=== PATIENT | male | born 1955 | race African-American/Black ===

== ENCOUNTER 2020-03-05 14:14 | Inpatient (IN) | payer OTHER ==
[~2020-03-05] VITALS: Ht 185.4 cm; Wt 96.6 kg
[2020-03-05] MEDS ORDERED: LEVETIRACETAM 500MG PREMIX 100 ML IV ONE (14:45)
[2020-03-05 15:22] LABS: CHLORIDE 108 mEq/L (98-107)
[2020-03-05 15:26] LABS: ETHANOL BLOOD < 10 mg/dL
[2020-03-05] MEDS ORDERED: LORAZEPAM 2MG/ML CPJ ONE ×2 (15:54→19:40)
[2020-03-05 15:56] LABS: BASOPHILS % 0.5 % (0.0-2.0); EOSINOPHILS % 0.4 % (0.0-5.0); HEMATOCRIT. 45.9 % (42.0-52.0); HEMOGLOBIN. 15.7 g/dL (14.0-18.0); LYMPHOCYTES % 12.2 % (20.0-50.0); MEAN CORPUSCULAR HEMOGLOBIN 31.6 pg (28.0-32.0); MEAN CORPUSCULAR VOLUME 92.4 fL (80.0-94.0); MEAN PLATELET VOLUME 9.7 fl (7.4-10.4); MONOCYTES % 8.1 % (2.0-8.0); NEUTROPHILS % 78.8 % (40.0-76.0); PLATELET 151 x1000/uL (130-400); RED BLOOD CELL COUNT 4.97 mill/uL (4.7-6.1); RED CELL DISTRIBUTION WIDTH 13.1 % (11.6-14.6)
[2020-03-05] MEDS ORDERED: LORAZEPAM 2MG/ML CPJ IV ONE (16:00)
[2020-03-05] MEDS ORDERED: DEXTROSE 50% WATER 50ML SYRINGE IV PRN (19:45)
[2020-03-05] MEDS ORDERED: ACETAMINOPHEN 325MG TABLET PO PRN (19:45)
[2020-03-05] MEDS ORDERED: ZOLPIDEM TARTRATE 5MG TABLET PO PRN (19:45)
[2020-03-05] MEDS ORDERED: DIPHENHYDRAMINE 50MG/ML VIAL IV PRN (19:45)
[2020-03-05] MEDS ORDERED: ONDANSETRON HCL 4MG/2ML INJ IV PRN (19:45)
[2020-03-05] MEDS ORDERED: LORAZEPAM 2MG/ML CPJ IV PRN (19:45)
[2020-03-05] MEDS ORDERED: MVI, ADULT NO.1 10 ML, FOLIC ACID 1 MG, THIAMINE HCL 100 MG in SODIUM CHLORIDE 0.9% 1,0... IV NR ×4 (20:00)
[2020-03-05] MEDS ORDERED: LEVETIRACETAM 500MG PREMIX 100 ML IV NR (20:15)
[2020-03-05] MEDS ORDERED: DIPHENHYDRAMINE 50MG/ML VIAL IV NR (20:45)
[2020-03-05] MEDS ORDERED: LEVETIRACETAM 500 MG in SODIUM CHLORIDE 0.9% 100 ML IV SCH (20:45)
[2020-03-05] MEDS ORDERED: HALOPERIDOL LACTATE 5MG/ML VIAL IM PRN (20:45)
[2020-03-05] MEDS ORDERED: HALOPERIDOL LACTATE 5MG/ML VIAL IM NR (20:45)
[2020-03-05] MEDS: DEXT 5%/0.45% NACL 1000ML 1,000 ML IV SCH (22:00)
[2020-03-05] MEDS: BLOOD SUGAR DIAGNOSTIC STRIP TEST SCH (22:18)
[2020-03-05] MEDS: INSULIN LISPRO 100 UNITS/ML SUBCUT SCH (22:19)
[2020-03-06] VITALS (7 sets, daily range): BP systolic 153–189; BP diastolic 71–102
[2020-03-06] MEDS: BLOOD SUGAR DIAGNOSTIC STRIP TEST SCH ×3 (05:35→17:54)
[2020-03-06] MEDS: DEXT 5%/0.45% NACL 1000ML 1,000 ML IV SCH ×2 (06:00→15:15)
[2020-03-06 06:04] LABS: HEMATOCRIT. 40.1 % (42.0-52.0); HEMOGLOBIN. 13.8 g/dL (14.0-18.0); MEAN CORPUSCULAR HEMOGLOBIN 31.9 pg (28.0-32.0); MEAN CORPUSCULAR VOLUME 92.4 fL (80.0-94.0); MEAN PLATELET VOLUME 10.8 fl (7.4-10.4); PLATELET 127 x1000/uL (130-400); RED BLOOD CELL COUNT 4.34 mill/uL (4.7-6.1); RED CELL DISTRIBUTION WIDTH 13.1 % (11.6-14.6)
[2020-03-06 06:47] LABS: CHLORIDE 107 mEq/L (98-107)
[2020-03-06 06:58] LABS: PHOSPHORUS 2.5 mg/dL (2.5-4.9)
[2020-03-06] MEDS: INSULIN LISPRO 100 UNITS/ML SUBCUT SCH ×3 (08:10→18:10)
[2020-03-06] MEDS ORDERED: LEVETIRACETAM 500 MG in SODIUM CHLORIDE 0.9% 100 ML IV SCH (09:00)
[2020-03-06] MEDS ORDERED: FAMOTIDINE 20MG/2ML VIAL IV SCH (09:00)
[2020-03-06] MEDS: LEVETIRACETAM 500MG PREMIX 100 ML IV SCH ×2 (09:20→21:32)
[2020-03-06] MEDS: CLONIDINE 0.1MG TABLET PO PRN ×2 (09:20→18:04)
[2020-03-06 09:54] LABS: PLATELET ESTIMATE SLIGHTLY DECREASED
[2020-03-06] MEDS: HYDRALAZINE 20MG/ML VIAL IV PRN (13:05)
[2020-03-06] MEDS: ACETAMINOPHEN 325MG TABLET PO PRN (15:15)
[2020-03-07] VITALS: BP 188/98
[2020-03-07] MEDS: HYDRALAZINE 20MG/ML VIAL IV PRN (00:46)
[2020-03-07] MEDS: ACETAMINOPHEN 325MG TABLET PO PRN ×2 (05:56→11:20)
[2020-03-07] MEDS: INSULIN LISPRO 100 UNITS/ML SUBCUT SCH (07:50)
[2020-03-07] MEDS: BLOOD SUGAR DIAGNOSTIC STRIP TEST SCH (07:50)
[2020-03-07 08:00] VITALS: BP 147/66
[2020-03-07] MEDS: LEVETIRACETAM 500MG PREMIX 100 ML IV SCH (08:38)
[2020-03-07] MEDS ORDERED: FAMOTIDINE 20MG TABLET PO SCH (09:00)
[2020-03-07 12:00] VITALS: BP 159/94
[2020-03-07 16:39] VITALS: BP 159/97
== END 2020-03-07 17:30 | disposition home health service (06) | DRG 101 ==
LOC: ER 14:27 → 7WST 18:07 → ENRESERV 20:20
PROVIDERS: ADMIT Internal Medicine; ATTEND Internal Medicine
DX: G40.909 Epilepsy, unspecified, not intractable, without status epilepticus (principal); F10.20 Alcohol dependence, uncomplicated; E11.9 Type 2 diabetes mellitus without complications; E66.9 Obesity, unspecified; I10 Essential (primary) hypertension; Z68.28 Body mass index [BMI] 28.0-28.9, adult
CPT/HCPCS: 36415; 71045; 80053; 80320; 82962; 83036; 83735; 84100; 85025; 93970; 96365; 97162; 99291; J0360; J1200; J1630; J1953; J2060; J2405; J3411; J3490; J7030; G0480